=== PATIENT | female | born 1985 | race Caucasian/White ===

== ENCOUNTER 2022-03-19 13:45 | Outpatient (RCR) | payer BC, SELFPAY ==
--- NOTE | 2022-03-10 15:38 | PT.OIE ---
Current Diagnoses Multiple sclerosis (03/10/22) Other abnormalities of gait and mobility (03/10/22) Repeated falls (03/10/22) Visit Care Team Role Provider Type Emmie Espino MD Attending Provider Non-Staff Family Provider Primary Care Provider Referring Provider Specialty: Medical Address: [address] [place] [address], Formerly [facility], [place], [address] Email: Physical Therapy Initial Evaluation PT-OP-A Visit Information Start: 03/09/22 17:05 Freq: Status: Active Protocol: Document 03/10/22 13:00 AMB (Rec: 03/10/22 15:32 AMB [id number]) Out-Patient Physical Therapy Visit Information Visit Information Visit Type Initial Evaluation Visit Start Time 13:00 Visit Stop Time 13:45 Total Visit Minutes 45 Visit Number 1 PT-OP-B Current Condition Start: 03/09/22 17:05 Freq: Status: Active Protocol: Document 03/10/22 13:03 AMB (Rec: 03/10/22 13:23 AMB [id number]) Current Condition History of Current Condition Onset Date 2004 Current Complaints Difficulty walking, R leg weakness/spasticity History of Current Condition Diagnosed with MS in 2004. Was minimally impaired until she had a severe relapse after of child in 2015. Got home health and outpatient. July 2019 gave again, and was ok until December 2019 had another relapse. Progressive MS is now her diagnosis, and has done botox. Has two small children, and is working 40 hours a week. Can't walk without fatigue, spasticity, currently using 1 walking stick as AD in the community, tends to furniture walk at home. 10 minutes on [employer], online barre workouts , does have standing desk. R LE is swollen/cold. Has fallen 8-10x in 6 months, walking uphill is really hard. Does have a carbon fiber AFO - 15 days old really difficult to don so hasn't used it much . 3 falls in one week a couple of weeks ago. Get dizzy with turning, not . 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 Has done prior PT, but had a good experience here and hoping to be really challenged, hoping to exercise for 30minutes 2x/ day. Pt is moving to a single level home. Prior Functional Status Baseline Function- ADL's Modified Independent Baseline Function- Mobility Modified Independent PT-OP-C Subjective Start: 03/09/22 17:05 Freq: Status: Active Protocol: Document 03/10/22 13:00 AMB (Rec: 03/11/22 10:29 AMB [id number]) OP-PT Pain Assessment Comments Pain Comments 3/10 right groin/adductors PT-OP-D Balance Start: 03/09/22 17:05 Freq: Status: Active Protocol: Document 03/10/22 13:00 AMB (Rec: 03/11/22 10:28 AMB [id number]) Balance Tests Other Other Balance Tests Performed NBOS EO: independent visible ankle sway on the left, none on the right. Head turns: LOB able to independently recover. PT-OP-G Mobility & Gait Start: 03/09/22 17:05 Freq: Status: Active Protocol: Document 03/10/22 13:00 AMB (Rec: 03/11/22 10:28 AMB [id number]) OP Mobility Evaluation Bed Mobility Rolling pt with difficulty initiating roll, difficulty moving the right leg due to tone OP Gait Assessment Comments Gait Comments Trekking pole in L UE, circumduction gait with reduced knee flexion/ankle dorsiflexion/hip flexion. PT-OP-H Neuro Start: 03/09/22 17:05 Freq: Status: Active Protocol: Document 03/10/22 13:00 AMB (Rec: 03/11/22 10:28 AMB [id number]) Sensation Evaluation Comments Summary Comments light touch intact to r foot Muscle Tone Tone Assessment Right Lower Extremity Extensor Tone Description Moderate Hypertonicity Muscle Tone Comments 2 beats of mild clonus PT-OP-J Posture/Palpation/Skin Start: 03/09/22 17:05 Freq: Status: Active Protocol: Document 03/10/22 13:00 AMB (Rec: 03/11/22 10:28 AMB [id number]) Skin Assessment Edema Assessment Right Ankle Edema Type Pitting Edema Degree 3+ Edema Appearance Firm PT-OP-K Range of Motion Start: 03/09/22 17:05 Freq: Status: Active Protocol: Document 03/10/22 13:00 AMB (Rec: 03/11/22 10:28 AMB [id number]) Ankle and Foot Goniometric Range of Motion Ankle and Foot Right Passive Testing Position Supine Dorsiflexion with Knee Flexed 5 Comments missing 5 degrees of dorsiflexion with knee flexed PT-OP-M Strength Start: 03/11/22 10:13 Freq: Status: Active Protocol: Document 03/10/22 13:00 AMB (Rec: 03/11/22 10:28 AMB [id number]) Hip Strength Hip Manual Muscle Testing Right Flexion (L2) 3- Fair- Extension (S1) 3- Fair- Abduction 3- Fair- Knee Strength Knee Manual Muscle Testing Right Flexion (S2) 3+ Fair+ Extension (L3) 3+ Fair+ Ankle/Foot Strength Ankle and Foot Manual Muscle Testing Right Dorsiflexion (L4) 2 Poor Plantarflexion (S1) 2+ Poor+ Inversion 2+ Poor+ Eversion (S1) 1 Trace Toe Strength Toe Manual Muscle Testing Right Great Toe Flexion 1 Trace Extension 1 Trace PT-OP-T Assessment and Plan Start: 03/09/22 17:05 Freq: Status: Active Protocol: Document 03/10/22 13:00 AMB (Rec: 03/11/22 12:59 AMB [id number]) Physical Therapy Assessment Rehab Potential Rehabilitation Potential Good Evaluation Complexity Number of Personal Factors/Comorbidities 1-2 Number of Body Systems Impaired 4 or More Clinical Presentation at Evaluation Evolving Impairments Impairments Activity Tolerance,Balance, Edema,Functional Activities, Functional Mobility,Gait,Pain, ROM,Strength,Tone,Transfers Goals Three Impairment Transfers Short Term Goal (STG) Ivan will roll over in bed without groin pain. STG Duration 5 weeks Wool Broker Goal (LTG) Ivan will perform a floor transfer without environmental support independently. LTG Duration 10 weeks Two Impairment HEP Wool Broker Goal (LTG) Ivan will be independent and consistent with a land and aquatic HEP. LTG Duration 10 weeks One Impairment Gait Short Term Goal (STG) Ivan will perfrom a TUG in 20 seconds or less. STG Duration 5 weeks Wool Broker Goal (LTG) Ivan will ambulate over smooth terrain with her trekking pole and AFO with Jigar for 200' without a circumdating gait pattern. LTG Duration 10 weeks Assessment Summary Assessment Ivan presents to physical therapy with right leg spasticity, weakness, pain and edema that is impairing her ability to walk. She has a significant fall history, fatigue is a large issue in her gait safety. She is very motivated, but her progressive MS is making it more and more difficult for her to walk and take care of her family. She will benefit from physical therapy for an appropriate HEP , gait training, transfer training, instruction in an aquatic HEP, edema management and fall reduction training. Physical Therapy Plan Frequency and Duration Frequency of Treatment 2x/Week Duration of Treatment 10 weeks Plan of Care Start Date 03/10/22 Plan of Care End Date 05/19/22 Therapeutic Interventions Therapeutic Interventions Aquatic Therapy,Balance Training,Gait Training,Home Exercise Program,Manual Therapy,Neuromuscular Re- education,Patient/Caregiver Education,Self-Care/Home Management,Soft Tissue Mobilization,Therapeutic Activities,Therapeutic Exercises Modalities Cold Pack/Ice Massage,Electric Stimulation,Hot Packs Next Visit Focus/Plan Next Note Type Treatment Note Next Visit Plan Review compression sock, driving hand assist options to keep functional. Establish HEP: calf stretching, balance (head turns), hip/core stability (groin pain). Assess bed mobility and floor transfer. Consider shuttle recovery to work on controlling knee flexion. Work on gait to reduce circumduction increase knee flexion. NMES for tib ant.
--- NOTE | 2022-03-10 15:40 | PT.OPPOC ---
Physical, Occupational & Speech Therapy At [facility] Current Diagnoses Multiple sclerosis (03/10/22) Other abnormalities of gait and mobility (03/10/22) Repeated falls (03/10/22) Visit Care Team Role Provider Type Emmie Espino MD Attending Provider Non-Staff Family Provider Primary Care Provider Referring Provider Specialty: Medical Address: [address] [place] [address], [facility] Email: Plan Of Care PT-OP-T Assessment and Plan Start: 03/09/22 17:05 Freq: Status: Active Protocol: Document 03/10/22 13:00 AMB (Rec: 03/11/22 12:59 AMB [id number]) Physical Therapy Assessment Rehab Potential Rehabilitation Potential Good Evaluation Complexity Number of Personal Factors/Comorbidities 1-2 Number of Body Systems Impaired 4 or More Clinical Presentation at Evaluation Evolving Impairments Impairments Activity Tolerance,Balance, Edema,Functional Activities, Functional Mobility,Gait,Pain, ROM,Strength,Tone,Transfers Goals Three Impairment Transfers Short Term Goal (STG) Ivan will roll over in bed without groin pain. STG Duration 5 weeks Jail Goal (LTG) Ivan will perform a floor transfer without environmental support independently. LTG Duration 10 weeks Two Impairment HEP Materials Coordinator Goal (LTG) Ivan will be independent and consistent with a land and aquatic HEP. LTG Duration 10 weeks One Impairment Gait Short Term Goal (STG) Ivan will perfrom a TUG in 20 seconds or less. STG Duration 5 weeks Materials Coordinator Goal (LTG) Ivan will ambulate over smooth terrain with her trekking pole and AFO with Jigar for 200' without a circumdating gait pattern. LTG Duration 10 weeks Assessment Summary Assessment Ivan presents to physical therapy with right leg spasticity, weakness, pain and edema that is impairing her ability to walk. She has a significant fall history, fatigue is a large issue in her gait safety. She is very motivated, but her progressive MS is making it more and more difficult for her to walk and take care of her family. She will benefit from physical therapy for an appropriate HEP , gait training, transfer training, instruction in an aquatic HEP, edema management and fall reduction training. Physical Therapy Plan Frequency and Duration Frequency of Treatment 2x/Week Duration of Treatment 10 weeks Plan of Care Start Date 03/10/22 Plan of Care End Date 05/19/22 Therapeutic Interventions Therapeutic Interventions Aquatic Therapy,Balance Training,Gait Training,Home Exercise Program,Manual Therapy,Neuromuscular Re- education,Patient/Caregiver Education,Self-Care/Home Management,Soft Tissue Mobilization,Therapeutic Activities,Therapeutic Exercises Modalities Cold Pack/Ice Massage,Electric Stimulation,Hot Packs Next Visit Focus/Plan Next Note Type Treatment Note Next Visit Plan Review compression sock, driving hand assist options to keep functional. Establish HEP: calf stretching, balance (head turns), hip/core stability (groin pain). Assess bed mobility and floor transfer. Consider shuttle recovery to work on controlling knee flexion. Work on gait to reduce circumduction increase knee flexion. NMES for tib ant. Plan of Care Dates Plan of Care Start Date 03/10/22 Plan of Care End Date 05/19/22 Electronically Signed by: Marie Hoffman, PT 03/11/22 [id number] If you are in agreement with this Plan of Care, please return a signed and dated copy. I have reviewed this Plan of Care and certify that the skilled therapy services above are required to meet the patient?s needs. Physician Signature Date Printed Name and Credentials
--- NOTE | 2022-03-12 15:36 | PT.OTN ---
Current Diagnoses Multiple sclerosis (03/12/22) Other abnormalities of gait and mobility (03/12/22) Repeated falls (03/12/22) Physical Therapy Treatment Note PT-OP-A Visit Information Start: 03/09/22 17:05 Freq: Status: Active Protocol: Document 03/12/22 13:00 AMB (Rec: 03/12/22 15:35 AMB [id number]) Out-Patient Physical Therapy Visit Information Visit Information Visit Type Treatment Note Visit Start Time 13:00 Visit Stop Time 13:45 Total Visit Minutes 45 Visit Number 1 PT-OP-B Current Condition Start: 03/09/22 17:05 Freq: Status: Active Protocol: Document 03/10/22 13:03 AMB (Rec: 03/10/22 13:23 AMB [id number]) Current Condition History of Current Condition Onset Date 2004 Current Complaints Difficulty walking, R leg weakness/spasticity History of Current Condition Diagnosed with MS in 2004. Was minimally impaired until she had a severe relapse after of child in 2015. Got home health and outpatient. July 2019 gave again, and was ok until December 2019 had another relapse. Progressive MS is now her diagnosis, and has done botox. Has two small children, and is working 40 hours a week. Can't walk without fatigue, spasticity, currently using 1 walking stick as AD in the community, tends to furniture walk at home. 10 minutes on [employer], [employer] bar[employer] workouts , does have standing desk. R LE is swollen/cold. Has fallen 8-10x in 6 months, walking uphill is really hard. Does have a carbon fiber AFO - 15 days old really difficult to don so hasn't used it much . 3 falls in one week a couple of weeks ago. Get dizzy with turning, not . 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 Has done prior PT, but had a good experience here and hoping to be really challenged, hoping to exercise for 30minutes 2x/ day. Pt is moving to a single level home. Prior Functional Status Baseline Function- ADL's Modified Independent Baseline Function- Mobility Modified Independent PT-OP-C Subjective Start: 03/09/22 17:05 Freq: Status: Active Protocol: Document 03/12/22 13:00 AMB (Rec: 03/12/22 15:35 AMB [id number]) OP-PT Subjective Patient Comments Patient Comments Brought AFO, had to get to help put it on. Patient Reported Progress Same PT-OP-D Balance Start: 03/09/22 17:05 Freq: Status: Active Protocol: Document 03/10/22 13:00 AMB (Rec: 03/11/22 10:28 AMB [id number]) Balance Tests Other Other Balance Tests Performed NBOS EO: independent visible ankle sway on the left, none on the right. Head turns: LOB able to independently recover. PT-OP-G Mobility & Gait Start: 03/09/22 17:05 Freq: Status: Active Protocol: Document 03/10/22 13:00 AMB (Rec: 03/11/22 10:28 AMB [id number]) OP Mobility Evaluation Bed Mobility Rolling pt with difficulty initiating roll, difficulty moving the right leg due to tone OP Gait Assessment Comments Gait Comments Trekking pole in L UE, circumduction gait with reduced knee flexion/ankle dorsiflexion/hip flexion. PT-OP-H Neuro Start: 03/09/22 17:05 Freq: Status: Active Protocol: Document 03/10/22 13:00 AMB (Rec: 03/11/22 10:28 AMB [id number]) Sensation Evaluation Comments Summary Comments light touch intact to r foot Muscle Tone Tone Assessment Right Lower Extremity Extensor Tone Description Moderate Hypertonicity Muscle Tone Comments 2 beats of mild clonus PT-OP-J Posture/Palpation/Skin Start: 03/09/22 17:05 Freq: Status: Active Protocol: Document 03/10/22 13:00 AMB (Rec: 03/11/22 10:28 AMB [id number]) Skin Assessment Edema Assessment Right Ankle Edema Type Pitting Edema Degree 3+ Edema Appearance Firm PT-OP-K Range of Motion Start: 03/09/22 17:05 Freq: Status: Active Protocol: Document 03/10/22 13:00 AMB (Rec: 03/11/22 10:28 AMB [id number]) Ankle and Foot Goniometric Range of Motion Ankle and Foot Right Passive Testing Position Supine Dorsiflexion with Knee Flexed 5 Comments missing 5 degrees of dorsiflexion with knee flexed PT-OP-M Strength Start: 03/11/22 10:13 Freq: Status: Active Protocol: Document 03/10/22 13:00 AMB (Rec: 03/11/22 10:28 AMB [id number]) Hip Strength Hip Manual Muscle Testing Right Flexion (L2) 3- Fair- Extension (S1) 3- Fair- Abduction 3- Fair- Knee Strength Knee Manual Muscle Testing Right Flexion (S2) 3+ Fair+ Extension (L3) 3+ Fair+ Ankle/Foot Strength Ankle and Foot Manual Muscle Testing Right Dorsiflexion (L4) 2 Poor Plantarflexion (S1) 2+ Poor+ Inversion 2+ Poor+ Eversion (S1) 1 Trace Toe Strength Toe Manual Muscle Testing Right Great Toe Flexion 1 Trace Extension 1 Trace PT-OP-Q Treatments Start: 03/09/22 17:05 Freq: Status: Active Protocol: Document 03/12/22 13:00 AMB (Rec: 03/12/22 15:35 [facility] [id number]) Gym Equipment Shuttle Recovery Unilateral Squats Details Right Resistance 50# Shuttle Recovery Platform Stable Reps/Time 3x10 Therapeutic Exercises Supine Exercises calf stretch Reps/Minutes 30x2 Comments passive by therapist bridge Reps/Minutes 1x10 Comments cues to avoid hip add/IR supine march Reps/Minutes 2x5 Sidelying Exercises clamshell Reps/Minutes 10 Sitting Exercises toe curl Sitting Exercise Name AROM vs AAROM Reps/Minutes 10 Standing Exercises mini squat Standing Exercise Name at railing Reps/Minutes 2x5 Comments cued hips back lateral lunges Standing Exercise Name at railing Reps/Minutes 2x5 Comments physical cues for knee alignment, hips back Other Exercises fire hydrant Other Exercise Name challenging Reps/Minutes 3 PT-OP-T Assessment and Plan Start: 03/09/22 17:05 Freq: Status: Active Protocol: Document 03/12/22 13:00 AMB (Rec: 03/12/22 15:35 [facility] [id number]) Physical Therapy Assessment Goals Three Impairment Transfers Short Term Goal (STG) Ivan will roll over in bed without groin pain. STG Duration 5 weeks Half-Way Goal (LTG) Ivan will perform a floor transfer without environmental support independently. LTG Duration 10 weeks Two Impairment HEP Ip Litigation Associate Goal (LTG) Ivan will be independent and consistent with a land and aquatic HEP. LTG Duration 10 weeks One Impairment Gait Short Term Goal (STG) Ivan will perfrom a TUG in 20 seconds or less. STG Duration 5 weeks Ip Litigation Associate Goal (LTG) Ivan will ambulate over smooth terrain with her trekking pole and AFO with Jigar for 200' without a circumdating gait pattern. LTG Duration 10 weeks Assessment Summary Assessment Ivan is very motivated, gave her a fairly long HEP today per her request. Should follow up on form. Had significant difficulty with fire hydrant but pt states she was able to do this exercise a few months ago, therefore wants to try. Discussed importance of compression socks. Pt interested in mirror box, did not try today due to time. Physical Therapy Plan Next Visit Focus/Plan Next Note Type Treatment Note Next Visit Plan Review HEP: lateral lunge and squat with UE support, calf stretch, supine march, bridge, clam, fire hydrant, toe curl. Continue shuttle recovery to work on controlling knee flexion. Work on gait to reduce circumduction increase knee flexion. NMES for tib ant per MD request. Consider mirror box for foot/toe movement per pt request.
--- NOTE | 2022-03-19 14:33 | PT.OTN ---
Current Diagnoses Multiple sclerosis (03/19/22) Other abnormalities of gait and mobility (03/19/22) Repeated falls (03/19/22) Physical Therapy Treatment Note PT-OP-A Visit Information Start: 03/09/22 17:05 Freq: Status: Active Protocol: Document 03/19/22 13:50 SP (Rec: 03/19/22 14:33 SP [id number]) Out-Patient Physical Therapy Visit Information Visit Information Visit Type Treatment Note Visit Start Time 13:50 Visit Stop Time 14:33 Total Visit Minutes 43 Visit Number 2 Number of HEADER SETUP OPERATOR Visits 1 PT-OP-B Current Condition Start: 03/09/22 17:05 Freq: Status: Active Protocol: Document 03/10/22 13:03 AMB (Rec: 03/10/22 13:23 AMB [id number]) Current Condition History of Current Condition Onset Date 2004 Current Complaints Difficulty walking, R leg weakness/spacticity History of Current Condition Diagnosed with MS in 2004. Was minimally impaired until she had a severe relapse after of child in 2015. Got home health and outpatient. July 2019 gave again, and was ok until December 2019 had another relapse. Progressive MS is now her diagnosis, and has done botox. Has two small children, and is working 40 hours a week. Can't walk without fatigue, spasticity, currently using 1 walking stick as AD in the community, tends to furniture walk at home. 10 minutes on [employer], [employer] workouts , does have standing desk. R LE is swollen/cold. Has fallen 8-10x in 6 months, walking uphill is really hard. Does have a carbon fiber AFO - 15 days old really difficult to don so hasn't used it much . 3 falls in one week a couple of weeks ago. Get dizzy with turning, not . 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 Has done prior PT, but had a good experience here and hoping to be really challenged, hoping to exercise for 30minutes 2x/ day. Pt is moving to a single level home. Prior Functional Status Baseline Function- ADL's Modified Independent Baseline Function- Mobility Modified Independent PT-OP-C Subjective Start: 03/09/22 17:05 Freq: Status: Active Protocol: Document 03/19/22 13:50 SP (Rec: 03/19/22 14:33 SP [id number]) OP-PT Subjective Patient Comments Patient Comments Pt reported her R lower groin was pretty sore and had a hard time lifting R foot off ground when got home later after last appt, think the shuttle recovery and hydrant were to much yet. She reports the clamshell side is really hard and almost frustrating, wants to review. She stated prior PT suggested strengthening R adductor. PT-OP-D Balance Start: 03/09/22 17:05 Freq: Status: Active Protocol: Document 03/10/22 13:00 AMB (Rec: 03/11/22 10:28 AMB [id number]) Balance Tests Other Other Balance Tests Performed NBOS EO: independent visible ankle sway on the left, none on the right. Head turns: LOB able to independently recover. PT-OP-G Mobility & Gait Start: 03/09/22 17:05 Freq: Status: Active Protocol: Document 03/10/22 13:00 AMB (Rec: 03/11/22 10:28 AMB [id number]) OP Mobility Evaluation Bed Mobility Rolling pt with difficulty initiating roll, difficulty moving the right leg due to tone OP Gait Assessment Comments Gait Comments Trekking pole in L UE, circumduction gait with reduced knee flexion/ankle dorsiflexion/hip flexion. PT-OP-H Neuro Start: 03/09/22 17:05 Freq: Status: Active Protocol: Document 03/10/22 13:00 AMB (Rec: 03/11/22 10:28 AMB [id number]) Sensation Evaluation Comments Summary Comments light touch intact to r foot Muscle Tone Tone Assessment Right Lower Extremity Extensor Tone Description Moderate Hypertonicity Muscle Tone Comments 2 beats of mild clonus PT-OP-J Posture/Palpation/Skin Start: 03/09/22 17:05 Freq: Status: Active Protocol: Document 03/10/22 13:00 AMB (Rec: 03/11/22 10:28 AMB [id number]) Skin Assessment Edema Assessment Right Ankle Edema Type Pitting Edema Degree 3+ Edema Appearance Firm PT-OP-K Range of Motion Start: 03/09/22 17:05 Freq: Status: Active Protocol: Document 03/10/22 13:00 AMB (Rec: 03/11/22 10:28 AMB [id number]) Ankle and Foot Goniometric Range of Motion Ankle and Foot Right Passive Testing Position Supine Dorsiflexion with Knee Flexed 5 Comments missing 5 degrees of dorsiflexion with knee flexed PT-OP-M Strength Start: 03/11/22 10:13 Freq: Status: Active Protocol: Document 03/10/22 13:00 AMB (Rec: 03/11/22 10:28 AMB [id number]) Hip Strength Hip Manual Muscle Testing Right Flexion (L2) 3- Fair- Extension (S1) 3- Fair- Abduction 3- Fair- Knee Strength Knee Manual Muscle Testing Right Flexion (S2) 3+ Fair+ Extension (L3) 3+ Fair+ Ankle/Foot Strength Ankle and Foot Manual Muscle Testing Right Dorsiflexion (L4) 2 Poor Plantarflexion (S1) 2+ Poor+ Inversion 2+ Poor+ Eversion (S1) 1 Trace Toe Strength Toe Manual Muscle Testing Right Great Toe Flexion 1 Trace Extension 1 Trace PT-OP-Q Treatments Start: 03/09/22 17:05 Freq: Status: Active Protocol: Document 03/19/22 13:50 SP (Rec: 03/19/22 14:33 SP [id number]) Therapeutic Exercises Supine Exercises clamshell Resistance TB #2 Reps/Minutes 2x20 Comments cued = BLE distance, RLE control in/out bridge Supine Exercise Name added adduction isometric for R hip strengthening control/ alignment Side bilateral Resistance AROM Equipment Used blue kick ball Reps/Minutes 2x10 Comments cued maintain adductio, improved with more emphasis need desc supine march Supine Exercise Name alternating B w/better TA awareness Resistance AROM Reps/Minutes 2x10 Comments cued 90/90 no AFO, control lift lower- good TA Sitting Exercises STS Sitting Exercise Name from lowest big black table Resistance AROM then added YTB (provided #2 TB) Equipment Used hands front Reps/Minutes 2x10 Comments cued hip abd ascend/descend strengthening toe curl Sitting Exercise Name AROM vs AAROM Reps/Minutes 10 Comments revisit next tx- discussed try seated/standing object grasp Standing Exercises hip extension/ knee & hip flexion Standing Exercise Name added- (star glide- 6 o'clock) Side right Resistance AROM Equipment Used chair, slider Reps/Minutes 2x5 Comments cued core/trunk stability, soft L knee then allow RLE hip adduction Standing Exercise Name added (star glide- 3 o'clock) Side right Resistance AROM Equipment Used chair, slider Reps/Minutes 2x5 Comments cued for ankle/foot inversion and little supination for foot alignment Gait Training Gait Activity gait w/ trek pole Description toe off, R knee flexion swing through Device Used trek pole LUE (w/without AFO RLE) Level of Assistance S- Mod I Surface firm Distance/Duration 60 ft, 120 ft Treatment Focus R knee & flexion foot clearance with adduction awareness for dec circumduct Comments improved patterning. Pt unable to complete heel toe but better form R knee flexion adduction swing through advancement with decrease hip hike compensations. PT-OP-T Assessment and Plan Start: 03/09/22 17:05 Freq: Status: Active Protocol: Document 03/19/22 13:50 SP (Rec: 03/19/22 14:33 SP [id number]) Physical Therapy Assessment Goals Three Impairment Transfers Short Term Goal (STG) Ivan will roll over in bed without groin pain. STG Duration 5 weeks Environmental Marketer Goal (LTG) Ivan will perform a floor transfer without environmental support independently. LTG Duration 10 weeks Two Impairment HEP Environmental Marketer Goal (LTG) Ivan will be independent and consistent with a land and aquatic HEP. LTG Duration 10 weeks One Impairment Gait Short Term Goal (STG) Ivan will perfrom a TUG in 20 seconds or less. STG Duration 5 weeks Chcf Goal (LTG) Ivan will ambulate over smooth terrain with her trekking pole and AFO with Jigar for 200' without a circumdating gait pattern. LTG Duration 10 weeks Assessment Summary Assessment Pt improved RLe gait phase awareness during RLE advancement decrease hip hike and circumduction, does tire as distance progresses. Pt improved adduction and hip flexion strength control with modifications to HEP today added isometric R hip abd/ add and stated felt more confident success leaving. Added standing star glide with emphasis on hip add and flexion with cues for R foot / / to L IV/ supination effort for proper form. Physical Therapy Plan Frequency and Duration Frequency of Treatment 2x/Week Duration of Treatment 10 weeks Plan of Care Start Date 03/10/22 Plan of Care End Date 05/19/22 Therapeutic Interventions Therapeutic Interventions Aquatic Therapy,Balance Training,Gait Training,Home Exercise Program,Manual Therapy,Neuromuscular Re- education,Patient/Caregiver Education,Self-Care/Home Management,Soft Tissue Mobilization,Therapeutic Activities,Therapeutic Exercises Modalities Cold Pack/Ice Massage,Electric Stimulation,Hot Packs Next Visit Focus/Plan Next Note Type Treatment Note Next Visit Plan Review HEP: standing star adduction/flexion vs lateral lunge and squat w/ Tb, calf stretch, supine december, bridge w/ TB, supine clam w/ TB, fire hydrant (recheck), toe curl. Continue shuttle recovery to work on controlling knee flexion next visit. Work on gait to reduce circumduction increase knee flexion. NMES for tib ant per MD request. Consider mirror box for foot/ toe movement per pt request.
--- NOTE | 2022-08-05 13:19 | PT.OPDS ---
Current Diagnoses Multiple sclerosis (03/19/22) Other abnormalities of gait and mobility (03/19/22) Repeated falls (03/19/22) Visit Care Team Role Provider Type Emmie Espino MD Attending Provider Non-Staff Family Provider Primary Care Provider Referring Provider Specialty: Medical Address: [address] [place] [address], [facility], [place], [address] Email: Visit Number Visit Number 2 Discharge Summary PT-OP-B Current Condition Start: 03/09/22 17:05 Freq: Status: Active Protocol: Document 03/10/22 13:03 AMB (Rec: 03/10/22 13:23 AMB [id number]) Current Condition History of Current Condition Onset Date 2004 Current Complaints Difficulty walking, R leg weakness/spacticity History of Current Condition Diagnosed with MS in 2004. Was minimally impaired until she had a severe relapse after of child in 2015. Got home health and outpatient. July 2019 gave again, and was ok until December 2019 had another relapse. Progressive MS is now her diagnosis, and has done botox. Has two small children, and is working 40 hours a week. Can't walk without fatigue, spasticity, currently using 1 walking stick as AD in the community, tends to furniture walk at home. 10 minutes on [employer], [employer] workouts , does have standing desk. R LE is swollen/cold. Has fallen 8-10x in 6 months, walking uphill is really hard. Does have a carbon fiber AFO - 15 days old really difficult to don so hasn't used it much . 3 falls in one week a couple of weeks ago. Get dizzy with turning, not . 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 Has done prior PT, but had a good experience here and hoping to be really challenged, hoping to exercise for 30minutes 2x/ day. Pt is moving to a single level home. Prior Functional Status Baseline Function- ADL's Modified Independent Baseline Function- Mobility Modified Independent PT-OP-C Subjective Start: 03/09/22 17:05 Freq: Status: Active Protocol: Document 03/19/22 13:50 SP (Rec: 03/19/22 14:33 SP [id number]) OP-PT Subjective Patient Comments Patient Comments Pt reported her R lower groin was pretty sore and had a hard time lifting R foot off ground when got home later after last appt, think the shuttle recovery and hydrant were to much yet. She reports the clamshell side is really hard and almost frustrating, wants to review. She stated prior PT suggested strengthening R adductor. PT-OP-D Balance Start: 03/09/22 17:05 Freq: Status: Active Protocol: Document 03/10/22 13:00 AMB (Rec: 03/11/22 10:28 AMB [id number]) Balance Tests Other Other Balance Tests Performed NBOS EO: independent visible ankle sway on the left, none on the right. Head turns: LOB able to independently recover. PT-OP-G Mobility & Gait Start: 03/09/22 17:05 Freq: Status: Active Protocol: Document 03/10/22 13:00 AMB (Rec: 03/11/22 10:28 AMB [id number]) OP Mobility Evaluation Bed Mobility Rolling pt with difficulty initiating roll, difficulty moving the right leg due to tone OP Gait Assessment Comments Gait Comments Trekking pole in L UE, circumduction gait with reduced knee flexion/ankle dorsiflexion/hip flexion. PT-OP-H Neuro Start: 03/09/22 17:05 Freq: Status: Active Protocol: Document 03/10/22 13:00 AMB (Rec: 03/11/22 10:28 AMB [id number]) Sensation Evaluation Comments Summary Comments light touch intact to r foot Muscle Tone Tone Assessment Right Lower Extremity Extensor Tone Description Moderate Hypertonicity Muscle Tone Comments 2 beats of mild clonus PT-OP-J Posture/Palpation/Skin Start: 03/09/22 17:05 Freq: Status: Active Protocol: Document 03/10/22 13:00 AMB (Rec: 03/11/22 10:28 AMB [id number]) Skin Assessment Edema Assessment Right Ankle Edema Type Pitting Edema Degree 3+ Edema Appearance Firm PT-OP-K Range of Motion Start: 03/09/22 17:05 Freq: Status: Active Protocol: Document 03/10/22 13:00 AMB (Rec: 03/11/22 10:28 AMB [id number]) Ankle and Foot Goniometric Range of Motion Ankle and Foot Right Passive Testing Position Supine Dorsiflexion with Knee Flexed 5 Comments missing 5 degrees of dorsiflexion with knee flexed PT-OP-M Strength Start: 03/11/22 10:13 Freq: Status: Active Protocol: Document 03/10/22 13:00 AMB (Rec: 03/11/22 10:28 AMB [id number]) Hip Strength Hip Manual Muscle Testing Right Flexion (L2) 3- Fair- Extension (S1) 3- Fair- Abduction 3- Fair- Knee Strength Knee Manual Muscle Testing Right Flexion (S2) 3+ Fair+ Extension (L3) 3+ Fair+ Ankle/Foot Strength Ankle and Foot Manual Muscle Testing Right Dorsiflexion (L4) 2 Poor Plantarflexion (S1) 2+ Poor+ Inversion 2+ Poor+ Eversion (S1) 1 Trace Toe Strength Toe Manual Muscle Testing Right Great Toe Flexion 1 Trace Extension 1 Trace PT-OP-T Assessment and Plan Start: 03/09/22 17:05 Freq: Status: Active Protocol: Document 08/05/22 13:19 AMB (Rec: 08/05/22 13:19 AMB [id number]) Physical Therapy Assessment Assessment Summary Assessment Ivan has not been seen in PT for 4 months, she canceled due to difficulty attending due to lack of childcare. Physical Therapy Plan Discharge Physical Therapy Discharge Reasons No Longer Attending PT
== END 2022-08-06 15:52 | disposition home or self-care (01) ==
LOC: PHYS 13:45
PROVIDERS: Family Provider Physical Medicine & Rehabilitation; PCP Physical Medicine & Rehabilitation; Referring Provider Physical Medicine & Rehabilitation; Visit Provider Physical Medicine & Rehabilitation
DX: G35 Multiple sclerosis (principal); R29.6 Repeated falls; R26.89 Other abnormalities of gait and mobility
CPT/HCPCS: 97110; 97162